=== PATIENT | female | born 1945 | race Caucasian/White ===

== ENCOUNTER 2022-10-11 13:59 | Emergency (ER) | payer MEDICARE, OTHER, SELFPAY ==
[2022-10-11 15:12] VITALS: BP 122/71; PULSE 66; RESP 22; TEMP 36.4; O2SAT 96; BMI 33.8
--- NOTE | 2022-10-11 15:39 | CRLHL7_ITS ---
For Patients: As a result of the Century Cures Act, medical imaging exams and procedure reports are released immediately into your electronic medical record. You may view this report before your referring provider. If you have questions, please contact your health care provider. INDICATION: SOB TECHNIQUE: Chest 1 views. COMPARISON: May 14, 2022. FINDINGS: Cardiovascular and mediastinum: Mild cardiomegaly. Left chest wall AICD in unchanged position. Lungs and pleural spaces: No focal consolidation. Central vascular and interstitial prominence suspicious for interstitial edema. No sign of pleural effusion. No pneumothorax. Bones and soft tissues: No significant findings. IMPRESSION: Central vascular and interstitial prominence suspicious for interstitial edema. Mild cardiomegaly. Dictated by Yong Blackwell MD @ 10/11/2022 5:17:16 PM (Electronically Signed)
[2022-10-11 15:56] VITALS: O2SAT 96
[2022-10-11 16:31] LABS: Basophils Absolute Auto 0.01 K/uL (0.00-0.30); Basophils Percent Auto 0.1 % (0.0-3.0); Hematocrit 34.7 % (33.0-51.0); Hemoglobin* 11.3 gm/dL (12.0-16.0); Immature Granulocytes Abs Auto 0.27 K/uL (0.00-0.30); Immature Granulocytes Pct Auto 2.8 %; Lymphocytes Percent Auto 9.6 % (20-44); Mean Corpuscular HGB Conc 33 gm/dL (32-36); Mean Corpuscular Hemoglobin 30 pg (26-34); Mean Corpuscular Volume 91 fL (80-100); Monocytes Percent Auto 4.4 % (0.0-11.0); Neutrophils Percent Auto 83.1 % (42.0-72.0); Platelet Count* 211 K/uL (140-440); RDW Coefficient of Variation % 12.6 % (11.5-15.5); Red Blood Count 3.83 m/uL (4.00-5.20); White Blood Count* 9.58 K/uL (4.50-11.00)
[2022-10-11 16:33] LABS: Slide Review Reflex No
--- NOTE | 2022-10-11 16:35 | ED_ITS ---
HPI - General Adult General Chief complaint: Cough Stated complaint: Short of breath Time Seen by Provider: 10/11/22 15:58 Source: patient Mode of arrival: ambulatory Limitations: no limitations History of Present Illness HPI narrative: Patient is a 77-year-old female coming in today concerned about a cough. Cough has been present for about 2 weeks and is not getting any better. She believes that at some point in time she had a fever but this has resolved. Cough is generally dry except for today she coughed up some green sputum. She has been seen twice for this, she states she was tested for COVID which was negative and a chest x-ray was done earlier in the week which was negative. She can not sleep lying down because lying down generally makes her cough significantly worse she has been sleeping in a chair with her legs dangling over the side. In the last 24 hours her legs have become quite swollen. Patient is concerned because she does have a history of congestive heart failure. She does feel short of breath when she has coughing spasms and she can not catch her breath. Once or twice in last couple weeks she has coughed so hard that she has vomited. Related Data Home Medications Medication Instructions Recorded Confirmed apixaban 5 mg tablet (Eliquis) 5 mg PO BID 05/14/22 10/04/22 ascorbate calcium (vitamin C) 500 1 g PO Q6H 05/14/22 10/04/22 mg tablet ascorbic acid (vitamin C) 500 mg 500 mg PO QDAY 05/14/22 10/04/22 capsule,extended release atorvastatin 40 mg tablet 40 mg PO QDAY 05/14/22 10/04/22 calcium phos,tribasic 260 mg-D3 25 tab PO 05/14/22 10/04/22 mcg-herbal 50 mg chewable tablet (Alive Calcium-Vitamin D3) carvedilol 12.5 mg tablet 12.5 mg PO BID 05/14/22 10/04/22 furosemide 20 mg tablet 10 mg PO QAM 05/14/22 10/04/22 metformin 500 mg tablet 500 mg PO BID 05/14/22 10/04/22 sacubitril 97 mg-valsartan 103 mg 1 tab PO BID 05/14/22 10/04/22 tablet (Entresto) spironolactone 25 mg tablet 25 mg PO QDAY 05/14/22 10/04/22 vit C 250 mg-E 90 mg-zinc 40 1 tab PO QAM AND QPM 05/14/22 10/04/22 mg-copper 1 oz-vzlsps-kakulr chew tablet (PreserVision AREDS-2) cholestyramine-aspartame 4 gram ea PO 10/04/22 10/04/22 oral powder for susp in a packet Previous Rx's Medication Instructions Recorded codeine 10 mg-guaifenesin 100 mg/5 10 ml PO Q4-6H PRN cough #120 mL 05/14/22 mL oral liquid (Guaifenesin AC) doxycycline hyclate 100 mg tablet 100 mg PO BID #20 tabs 05/14/22 prednisone 20 mg tablet 40 mg PO QDAY #10 tabs 05/14/22 Allergies Allergy/AdvReac Type Severity Reaction Status Date / Time adhesive tape Allergy Intermediate Redness of Verified 10/04/22 17:35 Skin meperidine [From Demerol] Allergy Intermediate Weakness Verified 10/04/22 17:35 nitrofurantoin Allergy Intermediate Hives Verified 10/04/22 17:35 [From Macrobid] pentazocine [From Talwin] Allergy Intermediate Weakness Verified 10/04/22 17:35 Review of Systems Status of ROS: Reports: 10 or more systems reviewed and unremarkable except as noted in History and below [facility] Social History Smoking Status: Never smoker Exam Narrative: Exam Narrative: Well-nourished well-developed patient in no acute distress. Alert and oriented. Answers questions appropriately. Mood and affect are appropriate. Thoughts are goal oriented and rational. No tangential or magical thinking noted. Patient speaks in full sentences without needing to catch their breath. However, she does cough frequently throughout the examination. HEENT: Normocephalic atraumatic. Pupils are equally round reactive to light. Extraocular muscles are intact. Conjunctivae are moist without any icterus noted. Moist mucous membranes. Posterior pharynx is normal. Jonathan is soft. Cardiovascular: Heart is regular rate and rhythm S1 and S2 are present without any murmurs. Lungs: Clear to auscultation bilaterally no wheezes rhonchi or rales are appreciated. Deep breathing causes coughing spasms. Abdomen: Soft and nontender nondistended with normal bowel sounds. Extremities: Bilateral lower extremities show 2+ pitting edema. Skin: Well perfused without any obvious rashes. Const: Vital Signs, click to edit/add: Vital Signs - 24 hr 10/11/22 15:12 10/11/22 15:56 Temperature 97.5 F L Pulse Rate [Pulse Oximeter] 66 Respiratory Rate 22 Blood Pressure [Ri ght Upper Arm] 122/71 Pulse Oximetry 96 96 Oxygen Delivery Me thod Room Air Course Course Hospital Course: Labs were drawn. Triple swab was negative. CBC unremarkable. Chest x-ray without any infiltrates but question interstitial edema. BNP only slightly elevated at around 800. Vital Signs Vital signs: Initial Vital Signs Temperature 97.5 F L 10/11/22 15:12 Temperature Source Temporal Artery Scan 10/11/22 15:12 Pulse Rate 66 10/11/22 15:12 Pulse Rhythm 10/11/22 15:12 Respiratory Rate 22 10/11/22 15:12 Blood Pressure 122/71 10/11/22 15:12 Blood Pressure Mean 88 10/11/22 15:12 Blood Pressure Position Sitting 10/11/22 15:12 Pulse Oximetry 96 10/11/22 15:12 Oxygen Delivery Method 10/11/22 15:12 Vital Signs Temperature 97.5 F L 10/11/22 15:12 Pulse Rate 66 10/11/22 15:12 Respiratory Rate 22 10/11/22 15:12 Blood Pressure 122/71 10/11/22 15:12 Pulse Oximetry 96 10/11/22 15:12 Oxygen Delivery Method 10/11/22 15:12 Temperature 97.5 F L 10/11/22 15:12 Pulse Rate 66 10/11/22 15:12 Respiratory Rate 22 10/11/22 15:12 Blood Pressure 122/71 10/11/22 15:12 Pulse Oximetry 96 10/11/22 15:56 Oxygen Delivery Method 10/11/22 15:12 Medical Decision Making MDM Narrative Medical decision making narrative: 77-year-old female with a cough likely viral in nature. We discussed these viral coughs can continue for 6-8 weeks before they get better. She is already on prednisone which does not seem to be helping. She has cough syrup with codeine, Tessalon Perles and [id number] cough syrups at home. She may be having a mild exacerbation of congestive heart failure, I do recommend that she increase her Lasix from 10 mg daily to 20 mg daily for the next 3-5 days. And recommend she follow up with her primary care provider in 1 week with a repeat BNP and examination. Patient was agreeable had no other questions. Medical Records Medical records reviewed: Yes I reviewed the patient's medical records Lab Data Lab results reviewed: Yes I reviewed the patient's lab results Labs: Lab Results 10/11/22 10/11/22 10/11/22 Range/Units 15:08 16:26 16:26 WBC 9.58 (4.50-11.00) K/uL RBC 3.83 L (4.00-5.20) m/uL Hgb 11.3 L (12.0-16.0) gm/dL Hct 34.7 (33.0-51.0) % MCV 91 (80-100) fL MCH 30 (26-34) pg MCHC 33 (32-36) gm/dL RDW Coeff of Claudia 12.6 (11.5-15.5) % Plt Count 211 (140-440) K/uL Neut % (Auto) 83.1 H (42.0-72.0) % Lymph % (Auto) 9.6 L (20-44) % [place] % (Auto) 4.4 (0.0-11.0) % Eos % (Auto) 0.0 (0.0-7.0) % Baso % (Auto) 0.1 (0.0-3.0) % Neut # (Auto) 8.00 H (1.7-7.0) K/uL Lymph # (Auto) 0.90 (0.90-2.90) K/uL [place] # (Auto) 0.40 (0.00-0.90) K/UL Eos # (Auto) 0.00 (0.00-0.50) K/uL Baso # (Auto) 0.01 (0.00-0.30) K/uL NT-Pro-B Natriuret Pep 885 pg/mL SARS-CoV-2 (PCR) Negative SARS-CoV-2 (Negative) Influenza Type A (PCR) Negative PCR FLU A (Negative) Influenza Type B (PCR) Negative PCR FLU B (Negative) RSV (PCR) Negative PCR RSV (Negative) Imaging Data Chest x-ray: Attestation: I have reviewed the pertinent imaging results. Radiologist's impression: Chest 1 views. COMPARISON: May 14, 2022. FINDINGS: Cardiovascular and mediastinum: Mild cardiomegaly. Left chest wall AICD in unchanged position. Lungs and pleural spaces:? No focal consolidation. Central vascular and interstitial prominence suspicious for interstitial edema. No sign of pleural effusion.? No pneumothorax.? Bones and soft tissues:? No significant findings. IMPRESSION: Central vascular and interstitial prominence suspicious for interstitial edema. Mild cardiomegaly. Discharge Plan Discharge Clinical Impression: Congestive heart failure, Cough Patient Disposition: Home, Self-Care Condition: Stable Additional Instructions: For your cough, continue currently prescribed treatments including cough syrup and Tessalon Perles. Nap when you can. Given your leg swelling and slightly increased lab value regarding your congestive heart failure I would recommend you increase your Lasix from 10 mg daily to 20 mg daily for the next 3-5 days. Elevate your legs as much as possible throughout the day. I would also recommend that you follow-up with your primary care provider in about 1 week for re-examination. Return to the ER if your shortness of breath is worsening. Prescriptions: No Action cholestyramine-aspartame 4 gram powder in packet PO Label Comments: MIX 1 PACKET IN LIQUID THEN TAKE BY MOUTH TWO TIMES DAILY WITH MEALS. Eliquis 5 mg tablet 5 mg PO BID Entresto 97-103 mg tablet 1 tab PO BID metformin 500 mg tablet 500 mg PO BID spironolactone 25 mg tablet 25 mg PO QDAY carvedilol 12.5 mg tablet 12.5 mg PO BID Rx Instructions: must administer with a meal/food furosemide 20 mg tablet 10 mg PO QAM atorvastatin 40 mg tablet 40 mg PO QDAY ascorbate calcium (vitamin C) 500 mg tablet 1 g PO Q6H ascorbic acid (vitamin C) 500 mg capsule, extended release 500 mg PO QDAY Alive Calcium-Vitamin D3 260 mg calcium- 25 mcg-50 mg tablet,chewable PO PreserVision AREDS-2 250-90-40-1 mg tablet,chewable 1 tab PO QAM AND QPM doxycycline hyclate 100 mg tablet 100 mg PO BID Qty: 20 0RF prednisone 20 mg tablet 40 mg PO QDAY Qty: 10 0RF codeine-guaifenesin [Guaifenesin AC] 10-100 mg/5 mL liquid 10 ml PO Q4-6H PRN (Reason: cough) Qty: 120 0RF Follow Up/Referrals: Mehreen Welsh DO [Primary Care Provider] - Stand Alone Forms: [employer] Info Instructions
[2022-10-11 16:50] LABS: PCR FLU A Negative PCR FLU A (Negative)
[2022-10-11 16:51] LABS: PCR FLU B Negative PCR FLU B (Negative); PCR RSV Negative PCR RSV (Negative)
[2022-10-11 17:13] LABS: NT Pro B Type NatriureticPept* 885 pg/mL
[2022-10-11 17:50] VITALS: BP 122/71; PULSE 66; RESP 22; TEMP 36.4
[2022-10-11 19:16] LABS: SARS PCR* Negative SARS-CoV-2 (Negative)
== END 2022-10-11 17:58 | disposition home or self-care (01) ==
PROVIDERS: Emergency Provider Family Medicine; PCP Family Medicine
DX: I50.9 Heart failure, unspecified (principal); R05.9 Cough, unspecified
CPT/HCPCS: 36415; 71045; 83880; 85025; 87502; 87634; 87635; 94761; 99284